=== PATIENT | female | born 1980 | race Caucasian/White ===

== ENCOUNTER 2018-06-12 21:18 | Emergency (ER) | payer MEDICAID ==
[2018-06-12] MEDS: METOCLOPRAMIDE 10 MG INJ IV (22:22)
[2018-06-12 22:26] LABS: MODE MASK - SIMPLE; MetHgb Venous 0.2 %; Sample Type Blood venous; Site VENOUS LINE; Venous COHb 0.1 %; Venous Fraction OxyHgb 56.2 %; Venous Oxygen Sat 56.4 mmHG (55.0-75.0); Venous Total Hemglobin 14.5 g/dl
[2018-06-12] MEDS: KETOROLAC 30 MG INJ IV (22:43)
[2018-06-12] MEDS: DIPHENHYDRAMINE 50 MG INJ IV (22:45)
== END 2018-06-12 23:20 | disposition home or self-care (01) ==
LOC: E/R 21:18
DX: T59.91XA Toxic effect of unspecified gases, fumes and vapors, accidental (unintentional), initial encounter (principal)
CPT/HCPCS: 36415; 82803; 96374; 96375; 99284-25

== ENCOUNTER 2018-06-13 17:59 | Emergency (ER) | payer MEDICAID ==
[2018-06-13] MEDS: ONDANSETRON (ODT) 4 MG TAB ODT (19:27)
[2018-06-13] MEDS: KETOROLAC 60 MG INJ IM (19:28)
[2018-06-13 19:29] LABS: MODE ROOM AIR; MetHgb Venous 1.2 %; Sample Type Blood venous; Site VENOUS LINE; Venous COHb 0.3 %; Venous Fraction OxyHgb 25.5 %; Venous Oxygen Sat 25.9 mmHG (55.0-75.0); Venous Total Hemglobin 13.7 g/dl
== END 2018-06-13 20:17 | disposition home or self-care (01) ==
LOC: FTE 20:17
DX: T58.91XA Toxic effect of carbon monoxide from unspecified source, accidental (unintentional), initial encounter (principal); F17.210 Nicotine dependence, cigarettes, uncomplicated
CPT/HCPCS: 36415; 81025; 82803; 96372; 99284-25

== ENCOUNTER 2018-08-15 14:28 | Emergency (ER) | payer MEDICAID ==
[2018-08-15] MEDS: SOD CHLORIDE 0.9% 1,000 ML IV (15:19)
[2018-08-15] MEDS: ONDANSETRON 4 MG INJ IV (15:20)
[2018-08-15] MEDS: KETOROLAC 30 MG INJ IV (15:22)
[2018-08-15 15:28] LABS: ADD MAN DIFF? NO
[2018-08-15 15:30] LABS: BASOPHILS % 0.2 % (0.0-2.0); EOSINOPHILS % 0.1 % (0.0-7.0); HEMATOCRIT 41.3 % (37.0-47.0); HEMOGLOBIN 13.8 g/dl (12.0-16.0); LYMPHOCYTES # 1.8 10^3/ul (0.8-2.9); LYMPHOCYTES % 20.1 % (15.0-51.0); MEAN CORPUSCULAR HEMOGLOBIN 27.7 pg (29.0-33.0); MEAN CORPUSCULAR HGB CONC 33.4 g/dl (32.0-37.0); MEAN CORPUSCULAR VOLUME 82.8 fl (82.0-101.0); MEAN PLATELET VOLUME 8.6 fl (7.4-10.4); MONOCYTE # 0.7 10^3/ul (0.3-0.9); MONOCYTES % 7.8 % (0.0-11.0); NEUTROPHIL # 6.5 10^3/ul (1.6-7.5); NEUTROPHILS % 71.5 % (39.0-77.0); PLATELET COUNT 212 10^3/UL (140-415); RED BLOOD COUNT 4.99 10^6/ul (4.20-5.40)
[2018-08-15 15:30] LABS: WHITE BLOOD COUNT 9.1 10^3/ul (4.8-10.8)
[2018-08-15 15:50] LABS: ALANINE AMINOTRANSFERASE 27 IU/L (13-69); ALBUMIN 4.5 g/dl (3.3-4.9); ALBUMIN/GLOBULIN RATIO 1.28; ALKALINE PHOSPHATASE 67 IU/L (42-121); ANION GAP 10 (5-13); ASPARTATE AMINO TRANSFERASE 22 IU/L (15-46); BLOOD UREA NITROGEN 13 mg/dl (7-20); CALCIUM 9.3 mg/dl (8.4-10.2); CARBON DIOXIDE 26 mmol/L (21-31); CHLORIDE 100 mmol/L (97-110); CREATININE 0.71 mg/dl (0.44-1.00); Estimated GFR > 60 mL/min (>60); GLUCOSE 117 mg/dl (70-220); LIPASE 52 U/L (23-300); POTASSIUM 3.6 mmol/L (3.5-5.1); SODIUM 136 mmol/L (135-144)
[2018-08-15 15:55] LABS: ADD UMIC NO; UR ASCORBIC ACID NEGATIVE (NEGATIVE); UR BACTERIA FEW /HPF (NONE SEEN); UR BILIRUBIN (Dip) NEGATIVE (NEGATIVE); UR BLOOD (Dip) NEGATIVE (NEGATIVE); UR CLARITY SLIGHTLY CLOUDY (CLEAR); UR COLOR YELLOW (YELLOW); UR GLUCOSE (Dip) NEGATIVE (NEGATIVE); UR KETONES (Dip) 1+ mg/dL (NEGATIVE); UR LEUKOCYTE ESTERASE (Dip) NEGATIVE Leu/ul (NEGATIVE); UR MUCUS FEW /HPF (NONE SEEN); UR NITRITE (Dip) NEGATIVE (NEGATIVE); UR RBC 0 /HPF (0-5); UR SQUAMOUS EPITHELIAL CELL MANY /HPF (FEW); UR TOTAL PROTEIN (Dip) NEGATIVE (NEGATIVE); UR UROBILINOGEN (Dip) NEGATIVE (NEGATIVE); UR WBC 4 /HPF (0-5)
[2018-08-15] MEDS: ACET/BUTAL/CAFF TAB PO (16:31)
[2018-08-15] MEDS: LORAZEPAM 1 MG TAB PO (16:41)
[2018-08-15] MEDS: METOCLOPRAMIDE 10 MG INJ IV (17:03)
== END 2018-08-15 17:50 | disposition home or self-care (01) ==
LOC: FTE 14:28
DX: R11.2 Nausea with vomiting, unspecified (principal); R51 Headache
CPT/HCPCS: 36415; 80053; 81001; 81003; 81025; 83690; 85025; 96361; 96374; 96375; 99284-25

== ENCOUNTER 2018-08-16 10:55 | Emergency (ER) | payer MEDICAID ==
[2018-08-16] MEDS: SOD CHLORIDE 0.9% 1,000 ML IV (11:41)
[2018-08-16] MEDS: DIPHENHYDRAMINE 50 MG INJ IV (11:43)
[2018-08-16] MEDS: KETOROLAC 30 MG INJ IV (11:44)
[2018-08-16] MEDS: LORAZEPAM 2 MG INJ IV (11:46)
[2018-08-16] MEDS: PROCHLORPERAZINE 10 MG INJ IV (11:47)
== END 2018-08-16 13:17 | disposition home or self-care (01) ==
LOC: FTE 10:55
DX: R51 Headache (principal)
CPT/HCPCS: 70450; 81025; 96361; 96374; 96375; 99285-25